=== PATIENT | male | born 1975 | race Two or more races ===

== ENCOUNTER 2018-06-22 09:41 | Emergency (ER) | END 2018-06-22 11:40 | disposition home or self-care (01) ==

== ENCOUNTER 2019-03-15 13:25 | Emergency (ER) | payer OTHER ==
[~2019-03-15] VITALS: Ht 172.7 cm; Wt 83.1 kg
[~2019-03-15 13:25] MED LIST: IBUP-1542 PO
[2019-03-15 13:48] VITALS: BP 162/88; PULSE 78; RESP 18; Ht 172.7 cm; Wt 83.1 kg
[2019-03-15] MEDS ORDERED: LIDOCAINE 1% (MDV) 20 ML INJ SC ONE (14:30)
== END 2019-03-15 15:46 | disposition home or self-care (01) ==
LOC: FTE 13:25
DX: S61.411A Laceration without foreign body of right hand, initial encounter (principal); F17.210 Nicotine dependence, cigarettes, uncomplicated; W25.XXXA Contact with sharp glass, initial encounter; Y92.9 Unspecified place or not applicable
CPT/HCPCS: 12002; 73130; Z7502; Z7610